=== PATIENT | male | born 1980 | race African-American/Black ===

== ENCOUNTER 2020-06-25 15:53 | Emergency (ER) | payer MEDICAID ==
[~2020-06-25] VITALS: Ht 177.8 cm; Wt 77.0 kg
[2020-06-25 17:05] LABS: BASOPHILS % 0.8 % (0.0-2.0); EOSINOPHILS % 1.1 % (0.0-5.0); HEMATOCRIT. 44.2 % (42.0-52.0); HEMOGLOBIN. 14.8 g/dL (14.0-18.0); LYMPHOCYTES % 18.3 % (20.0-50.0); MEAN CORPUSCULAR HEMOGLOBIN 31.2 pg (28.0-32.0); MEAN CORPUSCULAR VOLUME 93.1 fL (80.0-94.0); MEAN PLATELET VOLUME 8.2 fl (7.4-10.4); MONOCYTES % 9.7 % (2.0-8.0); NEUTROPHILS % 70.1 % (40.0-76.0); PLATELET 208 x1000/uL (130-400); RED BLOOD CELL COUNT 4.74 mill/uL (4.7-6.1); RED CELL DISTRIBUTION WIDTH 14.7 % (11.6-14.6)
[2020-06-25 17:28] LABS: CHLORIDE 106 mEq/L (98-107)
[2020-06-25 17:32] LABS: ETHANOL BLOOD 16 mg/dL
[2020-06-25] MEDS ORDERED: LORAZEPAM 2MG/ML CPJ IV ONE (21:15)
[2020-06-25] MEDS ORDERED: HALOPERIDOL LACTATE 5MG/ML VIAL IM ONE ×2 (21:15)
[2020-06-25] MEDS ORDERED: LORAZEPAM 2MG/ML CPJ IM ONE (21:15)
[2020-06-25 22:01] LABS: CLARITY URINE CLEAR (CLEAR); COLOR URINE YELLOW (YELLOW); KETONES URINE NEGATIVE (NEGATIVE); LEUKOCYTE ESTERASE URINE NEGATIVE (NEGATIVE); NITRITE URINE NEGATIVE (NEGATIVE); OCCULT BLOOD URINE NEGATIVE (NEGATIVE); PROTEIN URINE NEGATIVE (NEGATIVE); SPECIFIC GRAVITY URINE 1.009 (1.005-1.030); UROBILINOGEN URINE 0.2 E.U./dL (0.2-1.0)
[2020-06-25 22:12] LABS: *AMPHETAMINES SCREEN URINE NEGATIVE (NEGATIVE); *BARBITURATES SCREEN URINE NEGATIVE (NEGATIVE); *BENZODIAZEPINES SCREEN URINE NEGATIVE (NEGATIVE); *COCAINE SCREEN URINE NEGATIVE (NEGATIVE); METHADONE URINE SCREEN NEGATIVE (NEGATIVE); OPIATES URINE SCREEN NEGATIVE (NEGATIVE)
[2020-06-25 22:13] LABS: CANNABINOID URINE SCREEN NEGATIVE (NEGATIVE); PHENCYCLIDINE URINE SCREEN PRESUMTIVE POSITIVE (NEGATIVE)
[2020-06-25] MEDS ORDERED: IOHEXOL-350 100 ML BOTTLE ONE (23:30)
[2020-06-26 06:45] VITALS: BP 122/84
== END 2020-06-26 06:47 | disposition left against medical advice (07) ==
LOC: EDBD 15:53 → ER 15:53 → CANBEDREQ 06-26 07:56
DX: R41.82 Altered mental status, unspecified (principal); I49.9 Cardiac arrhythmia, unspecified; Z98.890 Other specified postprocedural states
CPT/HCPCS: 36415; 70450; 70496; 70498; 80053; 80305; 80307; 80320; 80329; 81003; 85025; 93005; 96372; 99285; J1630; J2060; Q9967; Z7610; G0480